=== PATIENT | female | born 1980 | race Caucasian/White ===

== ENCOUNTER → 2020-05-28 | Outpatient (CLI) | payer BC ==
--- NOTE | 2020-05-28 17:25 | KCIC ---
Bilateral digital screening mammograms: Reason for examination: Routine baseline screening. Interpretation was made with the benefit of CAD. The skin and nipples show no abnormalities. No abnormal axillary lymph nodes are seen. The breast parenchyma shows scattered fibroglandular density. (Breast density: Category B.) There appears to be a small nodular asymmetry at approximately the 9:00 position of the right breast 9 cm from the nipple. Further evaluation with ultrasound is recommended. There are no other dominant masses, suspicious calcifications or architectural distortions. Impression: Small nodular asymmetry at the 9:00 position 9 cm from the nipple in the right breast. Recommend further evaluation with ultrasound. BI-RADS Category 0: Incomplete. Needs additional imaging evaluation. "Our facility is accredited by the [employer] Mammography [employer]." This patient's information has been entered into a reminder system for the patient to be notified with the results of her examination and a target date for the next mammogram. Electronically signed by: Janneth Schaeffer MD (05/28/2020 5:22 PM) [email or web address]
== END | disposition home or self-care (01) ==
LOC: KCIC MAMMO 08:18
PROVIDERS: ATTEND Nurse Practitioner Women's Health
DX: Z12.31 Encounter for screening mammogram for malignant neoplasm of breast (principal); N64.89 Other specified disorders of breast
CPT/HCPCS: 77067

== ENCOUNTER → 2020-06-13 | Outpatient (CLI) | payer BC ==
--- NOTE | 2020-06-13 18:36 | KCIC ---
Right breast ultrasound: Reason for examination: Nodular density on screening mammogram. Comparison is made to mammographic exam dated 05/28/2020. At the 10:00 position 9 cm from the nipple, there is a small hypoechoic fibrocystic type lesion measuring approximately 2.7 mm in size. No other cystic or solid lesions are seen. No abnormal appearing lymph nodes are seen in the right axilla. IMPRESSION: Some minimal fibrocystic changes at the 10:00 position. No suspicious abnormality seen. Recommend 6 month follow-up with right breast mammograms and ultrasound. BI-RADS Category 3: Probably Benign. "Our facility is accredited by the [employer]ammography [employer]." This patient's information has been entered into a reminder system for the patient to be notified with the results of her examination and a target date for the next mammogram. Electronically signed by: Janneth Schaeffer MD (06/13/2020 6:33 PM) [email or web address]
== END ==
LOC: KCIC US 10:23
PROVIDERS: ATTEND Nurse Practitioner Women's Health
DX: N64.89 Other specified disorders of breast (principal)
CPT/HCPCS: 76641

== ENCOUNTER → 2021-01-15 | Outpatient (CLI) | payer BC ==
--- NOTE | 2021-01-15 12:56 | KCIC ---
RIGHT DIAGNOSTIC MAMMOGRAPHY] BREAST ULTRASOUND History: Six-month follow-up. Comparison: Bilateral screening mammogram 05/28/2020. Right breast ultrasound 06/13/2020. Technique: Right digital mammogram views were obtained. Findings: Breast Tissue Density C : The breasts are heterogeneously dense, which may obscure small masses. The nodular asymmetry at the 9:00 C position is less well seen on today's study. There are no dominant masses, suspicious microcalcifications or architectural distortion. Real-time ultrasound imaging of the right breast is performed. No significant sonographic abnormality is identified in the upper outer right breast. There are no ab normal axillary lymph nodes. IMPRESSION: Nodular asymmetry at the 9:00 C position is less well seen on mammogram. Ultrasound is negative. [facility]ur[facility] mmend routine mammogram screening. BI-RADS category 1: Negative. The images were reviewed with computer-aided detection. Patient information is entered into the reminder system with a target due date for the next screening mammogram. Mammography is the most sensitive method for finding small breast cancers, but it does not detect the m all and is not a substitute for careful clinical examination. A negative mammogram does not negate a clinically suspicious finding and should not result in delay in biopsying a clinically suspicious a bnormality. "Our facility is accredited by the [employer] Mammography [employer]." Electronically signed by: Young Yancey MD (01/15/2021 12:54 PM) [id number]
== END ==
LOC: KCIC MAMMO 09:41
PROVIDERS: ATTEND Nurse Practitioner Women's Health
DX: R92.8 Other abnormal and inconclusive findings on diagnostic imaging of breast (principal); N63.13 Unspecified lump in the right breast, lower outer quadrant
CPT/HCPCS: 76641; 77065